=== PATIENT | male | born 1970 | race Caucasian/White ===

== ENCOUNTER 2022-01-22 09:45 | Emergency (ER) | payer MEDICAID ==
[~2022-01-22] VITALS: Ht 172.7 cm; Wt 115.8 kg
[2022-01-22 09:52] VITALS: BP 193/114
--- NOTE | 2022-01-22 09:59 | NUR ---
Anthony buaer in ED - 01/22/22 at 1001 by [facility]1 PT AMB TO BED 10.
--- NOTE | 2022-01-22 10:00 | NUR ---
AMBULATED TO ER BED 1
--- NOTE | 2022-01-22 10:09 | NUR ---
51 y/o M BIB self from home c/o left 3rd digit laceration s/p holding a window and glass causing laceration. Pt states bleeding controlled today; denies pain at this time. Avulsion and laceration noted to 3rd digit. Last tetanus 4 years ago. Denies other medical complaint. Bed locked in lowest position, side rails x 1. PMH/Sx/Meds: Denies NKDA
--- NOTE | 2022-01-22 10:20 | NUR ---
Pt states last tetanus 4 years ago; refusing Tdap vaccination ordered. Dr. Sharif made aware
[2022-01-22] MEDS ORDERED: BACI1PAC6 TP (10:24)
--- NOTE | 2022-01-22 10:32 | NUR ---
Patient discharged with v/s stable. Written and verbal after care instructions given and explained for Laceration [facility]. Patient alert, oriented and verbalized understanding of instructions. Ambulatory with steady gait. All questions addressed prior to discharge. ID band removed. Patient advised to follow up with PMD. Rx of Bacitracin given. Patient educated on indication of medication including possible reaction and side effects. Opportunity to ask questions provided and answered.
== END 2022-01-22 10:32 | disposition home or self-care (01) ==
LOC: MED 09:45
DX: S61.213A Laceration without foreign body of left middle finger without damage to nail, initial encounter (principal); W26.0XXA Contact with knife, initial encounter; Y93.89 Activity, other specified; Y92.89 Other specified places as the place of occurrence of the external cause; Y99.8 Other external cause status
CPT/HCPCS: 12001; 99282

== ENCOUNTER 2022-06-29 12:40 | Emergency (ER) | payer MEDICAID, OTHER ==
[~2022-06-29] VITALS: Ht 170.2 cm; Wt 114.8 kg
[~2022-06-29 12:40] MED LIST: BACI-416 TP
[2022-06-29 12:43] VITALS: BP 150/102
--- NOTE | 2022-06-29 12:52 | NUR ---
PT AMB TO BED 1.
[2022-06-29] MEDS ORDERED: NACL 0.9% 1,000 ML IV ONE ×2 (12:55→13:35)
--- NOTE | 2022-06-29 12:58 | NUR ---
EKG AT BEDSIDE.
--- NOTE | 2022-06-29 13:14 | NUR ---
MD AT BEDSIDE TO EVALUATE THE PATIENT
[2022-06-29 13:21] LABS: BASOPHILS # (AUTO) 0.1 K/uL (0.00-0.22); BASOPHILS % (AUTO) 0.8 % (0.0-2.0); EOSINOPHILS # (AUTO) 0.1 K/uL (0-0.4); EOSINOPHILS % (AUTO) 0.9 % (0.0-4.0); HEMATOCRIT 51.4 % (36-52); HEMOGLOBIN 17.8 g/dL (12.0-18.0); LYMPHOCYTES # (AUTO) 1.2 K/uL (2.0-11.5); LYMPHOCYTES % (AUTO) 14.9 % (20.5-51.1); MEAN CORPUSCULAR HEMOGLOBIN 30 pg (27-31); MEAN CORPUSCULAR HGB CONC 35 g/dL (33-37); MEAN CORPUSCULAR VOLUME 86.5 fL (80-94); MONOCYTES # (AUTO) 0.6 K/uL (0.8-1.0); MONOCYTES % (AUTO) 7.3 % (1.7-9.3); NEUTROPHILS # (AUTO) 6.1 K/uL (1.8-7.7); NEUTROPHILS % (AUTO) 76.1 % (42.2-75.2); PLATELET COUNT (AUTO) 239 K/uL (140-450); RED BLOOD CELL COUNT(AUTO) 5.93 MIL/uL (4.20-6.10); RED CELL DISTRIBUTION WIDTH 12.4 % (11.6-13.7); WHITE BLOOD COUNT (AUTO) 8.1 K/uL (4.8-10.8)
[2022-06-29 13:32] VITALS: BP 133/87
[2022-06-29 13:39] LABS: ALBUMIN 3.8 g/dL (3.4-5.0); ANION GAP 14.1 (8-16); ASPARTATE AMINOTRANSFERASE 14 U/L (15-37); CARBON DIOXIDE 24.1 mmol/L (21-32); CHLORIDE 94 mmol/L (98-107); CREATININE 1.2 mg/dL (0.6-1.3); GFR ARICAN-AMERICAN 82 mL/min (>90); POTASSIUM 4.2 mmol/L (3.5-5.1); SODIUM SERUM 128 mmol/L (136-145); TOTAL BILIRUBIN 0.5 mg/dL (0.0-1.0); UREA NITROGEN, BLOOD 17 mg/dL (7-18)
[2022-06-29 13:42] LABS: GLUCOSE 526 mg/dL (74-106)
[2022-06-29] MEDS ORDERED: METF-346 PO (16:58)
--- NOTE | 2022-06-29 17:18 | NUR ---
Patient discharged with v/s stable. Written and verbal after care instructions given and explained. Patient verbalized understanding. Ambulatory with steady gait. All questions addressed prior to discharge. Advised to follow up with PMD.
== END 2022-06-29 17:17 | disposition home or self-care (01) ==
LOC: MED 12:40
DX: E11.9 Type 2 diabetes mellitus without complications (principal); E86.0 Dehydration; R00.0 Tachycardia, unspecified; I10 Essential (primary) hypertension; E78.5 Hyperlipidemia, unspecified; Z79.899 Other long term (current) drug therapy; Z79.2 Long term (current) use of antibiotics
CPT/HCPCS: 36415; 80053; 82009; 84484; 85025; 93005; 96360; 99284; J7030

== ENCOUNTER 2022-09-24 19:13 | Emergency (ER) | payer OTHER ==
[~2022-09-24] VITALS: Ht 172.7 cm; Wt 122.5 kg
[~2022-09-24 19:13] MED LIST changes: +METF-346 PO
[2022-09-24 19:25] VITALS: BP 120/90
--- NOTE | 2022-09-24 19:28 | NUR ---
TO LOBBY A/W BED AMBULATORY
--- NOTE | 2022-09-24 19:43 | NUR ---
URINE WALKED TO LAB.
[2022-09-24] MEDS ORDERED: KETOROLAC 60 MG/2 ML VIAL IM ONE (20:10)
[2022-09-24] MEDS ORDERED: IBUP-2213 PO (20:13)
[2022-09-24] MEDS ORDERED: ACET-8905 PO (20:13)
--- NOTE | 2022-09-24 20:58 | NUR ---
Pt medicated via IM as ordered by . Tolerated well.
[2022-09-24 21:00] VITALS: BP 127/82
--- NOTE | 2022-09-24 21:05 | NUR ---
Patient discharged with v/s stable. Written and verbal after care instructions given and explained. Patient alert, oriented and verbalized understanding of instructions. All questions addressed prior to discharge. ID band removed. Patient advised to follow up with PMD. Rx sent to preferred pharmacy. Patient educated on indication of medication including possible reaction and side effects. Opportunity to ask questions provided and answered.
== END 2022-09-24 21:05 | disposition home or self-care (01) ==
LOC: MED 19:13
DX: M54.50 Low back pain, unspecified (principal); I10 Essential (primary) hypertension; E11.9 Type 2 diabetes mellitus without complications; F17.200 Nicotine dependence, unspecified, uncomplicated; Z72.89 Other problems related to lifestyle; Z79.4 Long term (current) use of insulin; Z79.899 Other long term (current) drug therapy
CPT/HCPCS: 81002; 96372; 99283; J1885

== ENCOUNTER 2023-01-13 13:31 | Emergency (ER) | payer OTHER ==
[~2023-01-13] VITALS: Ht 172.7 cm; Wt 118.8 kg
[~2023-01-13 13:31] MED LIST changes: +ACET-8905 PO; -BACI-416 TP; +BACI-418 TP; +IBUP-2213 PO
[2023-01-13 13:57] VITALS: BP 151/99; PULSE 117; RESP 18; TEMP 98; O2SAT 98
[2023-01-13] MEDS ORDERED: KETOROLAC 60 MG/2 ML VIAL IM ONE (14:35)
[2023-01-13 15:40] LABS: FLU A ANTIGEN negative (NEGATIVE); FLU B ANTIGEN NEGATIVE (NEGATIVE)
[2023-01-13] MEDS ORDERED: IBUP-2213 PO (16:04)
[2023-01-13] MEDS ORDERED: NIRM1TAB PO (16:04)
[2023-01-13] MEDS ORDERED: ACET-8905 PO (16:04)
== END 2023-01-13 16:30 | disposition home or self-care (01) ==
LOC: MED 13:31
DX: U07.1 COVID-19 (principal); M54.50 Low back pain, unspecified; E11.9 Type 2 diabetes mellitus without complications; I10 Essential (primary) hypertension; Z79.899 Other long term (current) drug therapy; Z79.1 Long term (current) use of non-steroidal anti-inflammatories (NSAID); Z79.2 Long term (current) use of antibiotics
CPT/HCPCS: 87426; 87804; 96372; 99283; J1885

== ENCOUNTER 2023-04-06 10:12 | Emergency (ER) | payer OTHER ==
[~2023-04-06] VITALS: Ht 172.7 cm; Wt 113.4 kg
[~2023-04-06 10:12] MED LIST changes: +NIRM1TAB PO
[2023-04-06 10:14] VITALS: BP_SYST 128; BP_SYST 166; BP_DIAS 103; BP_DIAS 71; PULSE 97; RESP 15; TEMP 97.3; O2SAT 100
[2023-04-06] MEDS ORDERED: ACETAMINOPHEN EXTRA STRENGTH 500 MG TAB PO ONE (11:20)
[2023-04-06] MEDS ORDERED: KETOROLAC 30 MG/ML VIAL IM ONE (11:20)
[2023-04-06] MEDS ORDERED: CIPR500T4 PO (11:53)
== END 2023-04-06 12:52 | disposition home or self-care (01) ==
LOC: MED 10:12
DX: S91.332A Puncture wound without foreign body, left foot, initial encounter (principal); E11.9 Type 2 diabetes mellitus without complications; I10 Essential (primary) hypertension; Z79.899 Other long term (current) drug therapy; Z79.1 Long term (current) use of non-steroidal anti-inflammatories (NSAID); Z79.2 Long term (current) use of antibiotics; W22.8XXA Striking against or struck by other objects, initial encounter; Y93.89 Activity, other specified; Y92.000 Kitchen of unspecified non-institutional (private) residence as the place of occurrence of the external cause; Y99.8 Other external cause status
CPT/HCPCS: 73630; 90471; 90715; 96372; 99284; J1885

== ENCOUNTER 2023-12-22 16:31 | Emergency (ER) | payer OTHER ==
[~2023-12-22] VITALS: Ht 172.7 cm; Wt 111.2 kg
[~2023-12-22 16:31] MED LIST changes: +CIPR500T4 PO
[2023-12-22 16:59] VITALS: BP 141/93; PULSE 102; RESP 18; TEMP 97.7; O2SAT 97
[2023-12-22] MEDS: NACL 0.9% 1,000 ML IV ONE (17:41)
[2023-12-22 17:47] LABS: BASOPHILS # (AUTO) 0.1 K/uL (0.00-0.22); BASOPHILS % (AUTO) 0.8 % (0.0-2.0); EOSINOPHILS # (AUTO) 0.1 K/uL (0-0.4); EOSINOPHILS % (AUTO) 0.9 % (0.0-4.0); HEMATOCRIT 49.7 % (36-52); HEMOGLOBIN 16.6 g/dL (12.0-18.0); LYMPHOCYTES # (AUTO) 1.4 K/uL (2.0-11.5); LYMPHOCYTES % (AUTO) 21.2 % (20.5-51.1); MEAN CORPUSCULAR HEMOGLOBIN 29 pg (27-31); MEAN CORPUSCULAR HGB CONC 33 g/dL (33-37); MEAN CORPUSCULAR VOLUME 87.7 fL (80-94); MONOCYTES # (AUTO) 0.6 K/uL (0.8-1.0); NEUTROPHILS # (AUTO) 4.6 K/uL (1.8-7.7); NEUTROPHILS % (AUTO) 68.1 % (42.2-75.2); PLATELET COUNT (AUTO) 228 K/uL (140-450); RED BLOOD CELL COUNT(AUTO) 5.67 MIL/uL (4.20-6.10); RED CELL DISTRIBUTION WIDTH 12.7 % (11.6-13.7); WHITE BLOOD COUNT (AUTO) 6.7 K/uL (4.8-10.8)
[2023-12-22 17:55] LABS: ANION GAP 14.9 (8-16); CALCIUM 8.6 mg/dL (8.5-10.1); CREATININE 0.9 mg/dL (0.6-1.3); POTASSIUM 3.9 mmol/L (3.5-5.1)
[2023-12-22] MEDS: INSULIN LISPRO 100 UNITS/ML VIAL SUBQ ONE (18:31)
[2023-12-22 18:39] LABS: APPEARANCE,URINE CLEAR (CLEAR); BILIRUBIN,URINE NEGATIVE (NEGATIVE); BLOOD, URINE NEGATIVE (NEGATIVE); COLOR,URINE YELLOW (YELLOW); LEUKOCYTE ESTERASE ,URINE NEGATIVE (NEGATIVE); NITRITE, URINE NEGATIVE (NEGATIVE); PROTEIN,URINE NEGATIVE (NEGATIVE); UGLUCOSE 3+ (NEGATIVE); UROBILINOGEN,URINE 0.2 EU/dL (0.2 - 1)
[2023-12-22] MEDS ORDERED: METF-352 PO (19:16)
[2023-12-22] MEDS ORDERED: INSU100I7 SQ (19:16)
[2023-12-22] MEDS ORDERED: [UNRECOGNIZED DRUG - CODE] MC (19:16)
[2023-12-22] MEDS ORDERED: INSU-1165 SQ (19:16)
[2023-12-22 19:51] VITALS: BP 130/85; PULSE 101; RESP 18; TEMP 97.7; O2SAT 97
== END 2023-12-22 19:51 | disposition home or self-care (01) ==
LOC: MED 16:31
DX: E11.65 Type 2 diabetes mellitus with hyperglycemia (principal); Z91.148 Patient's other noncompliance with medication regimen for other reason; I10 Essential (primary) hypertension; E78.00 Pure hypercholesterolemia, unspecified; F17.210 Nicotine dependence, cigarettes, uncomplicated; Z79.84 Long term (current) use of oral hypoglycemic drugs; Z79.1 Long term (current) use of non-steroidal anti-inflammatories (NSAID); Z79.899 Other long term (current) drug therapy
CPT/HCPCS: 36415; 80048; 81003; 82948; 85025; 96360; 96372; 99283; J1815; J7030